=== PATIENT | female | born 1975 | race Caucasian/White ===

== ENCOUNTER 2017-04-25 22:52 | Emergency (ER) | payer OTHER ==
--- NOTE | 2017-04-25 23:24 | ERPHSYRPT ---
- History of Present Illness Time Seen by Provider: 04/25/17 23:01 Source: patient, other (N.N.) Exam Limitations: no limitations Patient Subjective Stated Complaint: PER EMS, family called EMS stating that pt took a hand full of pill. and had been drinking. 3 pills were removed from pt shirt. pt states that she took the recommended dose of her medication and had 1 drink. pt states she has a therapy appt tomorrow Triage Nursing Assessment: aox3, breathing easy unlabored, skin pink warm dry, speech slurred, steady gait from cot to bed, white powered noted to clothing, upper and lower lips and right side of face. Physician History: REPORTEDLY PT'S FATHER CALLED POLICE STATING PT TOOK A HANDFUL OF PILLS AND HAS BEEN DRINKING ALCOHOLIC BEVERAGES. PT WAS BROUGHT TO [facility] ER BY AMBULANCE. PT STATES SHE TOOK ONLY THE USUAL DOSAGE OF HER MEDICATIONS AND HAD ONLY ONE DRINK. PT DENIES HOMICIDAL/SUICIDAL IDEATION AND STATES HER THERAPIST AT [facility] IS CY AND HAS AN APPOINTMENT TOMORROW AT 4:00 PM. PT STATES SHE CHEWS HER IBUPROFEN AND THIS IS THE WHITE POWDER AROUND HER LIPS AND RIGHT SIDE OF HER FACE. PT DENIES CHEST PAIN, SHORTNESS OF AIR, ABDOMINAL PAIN. Allergies/Adverse Reactions: No Known Drug Allergies Allergy (Verified 04/25/17 23:14) Home Medications: Clonazepam 0.5 mg [Klonopin 0.5 MG] 2 mg PO TID 04/25/17 [History] Methylphenidate 5 mg [Ritalin 5 MG] 10 mg PO TID 04/25/17 [History] Quetiapine Fumarate 25 mg [Seroquel 25 MG] 150 mg PO DAILY 04/25/17 [ History] Hx Tetanus, Diphtheria Vaccination/Date Given: Yes (WITHIN 5 YRS) Hx Influenza Vaccination/Date Given: No Hx Pneumococcal Vaccination/Date Given: No - Review of Systems Constitutional: No Weakness Respiratory: No Dyspnea Cardiac: No Chest Pain Abdominal/Gastrointestinal: No Abdominal Pain, No Vomiting Neurological: No Headache Psychological: No Suicidal Ideations, No Homicidal Ideations All Other Systems: Reviewed and Negative - Past Medical History Pertinent Past Medical History: Yes Neurological History: No Pertinent History ENT History: No Pertinent History Cardiac History: No Pertinent History Respiratory History: No Pertinent History Endocrine Medical History: No Pertinent History Musculoskeletal History: No Pertinent History GI Medical History: No Pertinent History History: No Pertinent History Psycho-Social History: Anxiety, Depression Female Reproductive Disorders: No Pertinent History Other Medical History: history recalled from computer - Past Surgical History Past Surgical History: No Neuro Surgical History: No Pertinent History Cardiac: No Pertinent History Gastrointestinal: No Pertinent History Genitourinary: No Pertinent History Musculoskeletal: No Pertinent History Female Surgical History: No Pertinent History Other Surgical History: history recalled from computer - Social History Smoking Status: Light tobacco smoker Exposure to second hand smoke: No Drug Use: marijuana Patient Lives Alone: No - Female History Hx Now: No - Nursing Vital Signs Nursing Vital Signs: Initial Vital Signs Temperature 98.0 F 04/25/17 22:59 Pulse Rate 125 H 04/25/17 22:59 Respiratory Rate 14 04/25/17 22:59 Blood Pressure 85/65 04/25/17 22:59 O2 Sat by Pulse Oximetry 96 04/25/17 22:59 Pain Scale Pain Intensity 9 - Physical Exam General Appearance: alert, anxiety Eye Exam: PERRL/EOMI Ears, Nose, Throat Exam: TMs normal, other (WHITE COATING TO TONGUE, LIPS AND RIGHT SIDE OF FACE.) Neck Exam: full range of motion Respiratory Exam: lungs clear Cardiovascular Exam: normal heart sounds Gastrointestinal/Abdomen Exam: soft, normal bowel sounds Back Exam: normal range of motion Extremity Exam: normal inspection, normal range of motion, No pedal edema Neurologic Exam: alert, cooperative, sensation nml, intoxicated appearance, other (ANXIOUS), No motor deficits Skin Exam: No cyanosis SpO2 Interpretation: normal SpO2: 96 Oxygen Delivery: Room Air - Course Nursing assessment & vital signs reviewed: Yes Ordered Tests: Active Orders 24 hr Category Date Time Status ACETAMINOPHEN Stat Lab 04/25/17 23:15 Completed AMYLASE Stat Lab 04/25/17 23:15 Completed CBC W DIFF Stat Lab 04/25/17 23:15 Completed CMP Stat Lab 04/25/17 23:15 Completed ETHYL ALCOHOL Stat Lab 04/25/17 23:15 Completed HCG QUALITATIVE,SERUM Stat Lab 04/25/17 23:15 Completed LIPASE Stat Lab 04/25/17 23:15 Completed SALICYLATE Stat Lab 04/25/17 23:15 Completed UA W/RFX UR CULTURE Stat Lab 04/25/17 23:25 Completed Urine Triage Profile Stat Lab 04/25/17 23:25 Completed Lab/Rad Data: Laboratory Result Diagrams 04/25/17 23:15 04/25/17 23:15 Laboratory Results 04/25/17 04/25/17 04/25/17 Range/Units 23:25 23:25 23:15 WBC (4.0-10.5) K/mm3 RBC (4.1-5.4) M/mm3 Hgb (12.0-16.0) gm/dl Hct (35-47) % MCV (78-100) fl MCH (26-32) pg MCHC (32-36) g/dl RDW (11.5-14.0) % Plt Count (150-450) K/mm3 MPV (6-9.5) fl Gran % (36.0-66.0) % Lymphocytes % (24.0-44.0) % Monocytes % (0.0-12.0) % Eosinophils % (0.00-5.0) % Basophils % (0.0-0.4) % Basophils # (0-0.4) Sodium (136-145) mEq/L Potassium (3.5-5.1) mEq/L Chloride (98-107) mEq/L Carbon Dioxide (21-32) mEq/L Anion Gap (5-15) MEQ/L BUN (9-20) mg/dL Creatinine (0.55-1.30) mg/dl Estimated GFR ML/MIN Glucose (70-110) MG/DL Calcium (8.5-10.1) mg/dL Total Bilirubin (0.2-1.0) mg/dL AST (15-37) U/L ALT (12-78) U/L Alkaline Phosphatase (46-116) U/L Serum Total Protein (6.4-8.2) gm/dL Albumin (3.4-5.0) g/dL Amylase (25-115) U/L Lipase (73-393) U/L Serum , Qual NEGATIVE (Negative) Ur Collection Type CLEAN CATCH Urine Color YELLOW (YELLOW) Urine Appearance CLEAR (CLEAR) Urine pH 5.0 (5-6) Ur Specific Weems 1.015 (1.005-1.025) Urine Protein NEGATIVE (Negative) Urine Ketones NEGATIVE (NEGATIVE) Urine Blood NEGATIVE (0-5) Zane/ul Urine Nitrite NEGATIVE (NEGATIVE) Urine Bilirubin NEGATIVE (NEGATIVE) Urine Urobilinogen NORMAL (0-1) mg/dL Ur Leukocyte Esterase NEGATIVE (NEGATIVE) Urine Culture Reflexed NO (NO) Urine Glucose NEGATIVE (NEGATIVE) mg/dL Salicylates (2.8-20.0) mg/dl Urine Opiates Level NEG. (NEGATIVE) Ur Methadone NEG. (NEGATIVE) Acetaminophen (10-30) ug/ml Urine Barbiturates NEG. (NEGATIVE) Ur Phencyclidine (PCP) NEG. (NEGATIVE) Urine Amphetamine NEG. (NEGATIVE) U Benzodiazepine Level NEG. (NEGATIVE) Urine Cocaine NEG. (NEGATIVE) Urine Marijuana (THC) NEG. (NEGATIVE) Ethyl Alcohol (0.00-0.01) % Specimen Received 04/25/17:202404/25/17 04/25/17 04/25/17 Range/Units 23:15 23:15 23:15 WBC 14.6 H (4.0-10.5) K/mm3 RBC 5.33 (4.1-5.4) M/mm3 Hgb 16.3 H (12.0-16.0) gm/dl Hct 48.0 H (35-47) % MCV 90.1 (78-100) fl MCH 30.5 (26-32) pg MCHC 34.0 (32-36) g/dl RDW 12.8 (11.5-14.0) % Plt Count 276 (150-450) K/mm3 MPV 10.9 H (6-9.5) fl Gran % 58.9 (36.0-66.0) % Lymphocytes % 31.1 (24.0-44.0) % Monocytes % 8.6 (0.0-12.0) % Eosinophils % 1.3 (0.00-5.0) % Basophils % 0.1 (0.0-0.4) % Basophils # 0.02 (0-0.4) Sodium 141 (136-145) mEq/L Potassium 3.3 L (3.5-5.1) mEq/L Chloride 105 (98-107) mEq/L Carbon Dioxide 23.8 (21-32) mEq/L Anion Gap 15.3 H (5-15) MEQ/L BUN 14 (9-20) mg/dL Creatinine 0.96 (0.55-1.30) mg/dl Estimated GFR > 60 ML/MIN Glucose 150 H (70-110) MG/DL Calcium 8.7 (8.5-10.1) mg/dL Total Bilirubin 0.20 (0.2-1.0) mg/dL AST 8 L (15-37) U/L ALT 19 (12-78) U/L Alkaline Phosphatase 60 (46-116) U/L Serum Total Protein 7.1 (6.4-8.2) gm/dL Albumin 3.6 (3.4-5.0) g/dL Amylase 283 H (25-115) U/L Lipase 176 (73-393) U/L Serum , Qual (Negative) Ur Collection Type Urine Color (YELLOW) Urine Appearance (CLEAR) Urine pH (5-6) Ur Specific Weems (1.005-1.025) Urine Protein (Negative) Urine Ketones (NEGATIVE) Urine Blood (0-5) Zane/ul Urine Nitrite (NEGATIVE) Urine Bilirubin (NEGATIVE) Urine Urobilinogen (0-1) mg/dL Ur Leukocyte Esterase (NEGATIVE) Urine Culture Reflexed (NO) Urine Glucose (NEGATIVE) mg/dL Salicylates < 2.8 L (2.8-20.0) mg/dl Urine Opiates Level (NEGATIVE) Ur Methadone (NEGATIVE) Acetaminophen < 2.0 L (10-30) ug/ml Urine Barbiturates (NEGATIVE) Ur Phencyclidine (PCP) (NEGATIVE) Urine Amphetamine (NEGATIVE) U Benzodiazepine Level (NEGATIVE) Urine Cocaine (NEGATIVE) Urine Marijuana (THC) (NEGATIVE) Ethyl Alcohol 0.145 H* (0.00-0.01) % Specimen Received - Departure Time of Disposition: 00:12 Departure Disposition: Home Clinical Impression: ALCOHOL INTOXICATION, MILD HYPOKALEMIA, ANXIETY, DEPRESSION Condition: Stable Critical Care Time: No Referrals: VIRGINIA MAYES [Primary Care Provider] - Instructions: Alcohol Abuse and Alcoholism Additional Instructions: FOLLOW UP WITH [facility] LATER TODAY AT 4:00 PM PRE-SCHEDULED. FOLLOW UP WITH PRIVATE DOCTOR LATER TODAY. AVOID ALCOHOLIC BEVERAGES.
[2017-04-25 23:32] LABS: BASOPHIL % 0.1 % (0.0-0.4); Eosinophil % 1.3 % (0.00-5.0); Granulocytes % 58.9 % (36.0-66.0); Lymphocytes % 31.1 % (24.0-44.0); Mean Cell Volume 90.1 fl (78-100); Mean Platelet Volume 10.9 fl (6-9.5); Monocytes % 8.6 % (0.0-12.0); Platelet Count 276 K/mm3 (150-450); Red Blood Count 5.33 M/mm3 (4.1-5.4); Red Cell Distribution Width 12.8 % (11.5-14.0); White Blood Count 14.6 K/mm3 (4.0-10.5)
[2017-04-25 23:33] LABS: ADD URINE CULTURE? NO (NO); Bilirubin NEGATIVE (NEGATIVE); Blood NEGATIVE Ery/ul (0-5); COMPLETE URINE MICROSCOPIC? NO; Collection Type CLEAN CATCH; Glucose NEGATIVE (NEGATIVE); Leukocyte Esterase NEGATIVE (NEGATIVE)
[2017-04-25 23:34] LABS: Mean Corpuscular Hemoglobin 30.5 pg (26-32)
[2017-04-25 23:49] LABS: LIPASE 176 U/L (73-393)
[2017-04-25 23:54] LABS: ALBUMIN 3.6 g/dL (3.4-5.0); ALKALINE PHOSPHATASE 60 U/L (46-116); ANION GAP 15.3 MEQ/L (5-15); BLOOD UREA NITROGEN 14 mg/dL (9-20); CHLORIDE 105 mEq/L (98-107); Carbon Dioxide 23.8 mEq/L (21-32); Glucose 150 MG/DL (70-110); Potassium 3.3 mEq/L (3.5-5.1); SGOT/AST 8 U/L (15-37); SGPT/ALT 19 U/L (12-78); SODIUM 141 mEq/L (136-145); Total Protein 7.1 gm/dL (6.4-8.2)
[2017-04-25 23:57] LABS: ACETAMINOPHEN < 2.0 ug/ml (10-30)
[2017-04-25 23:59] LABS: ETHYL ALCOHOL 0.145 % (0.00-0.01)
[2017-04-26 00:22] VITALS: BP 111/72; PULSE 120; O2SAT 94
== END 2017-04-26 00:55 | disposition home or self-care (01) ==
LOC: ED 22:52
DX: F10.129 Alcohol abuse with intoxication, unspecified (principal); E87.6 Hypokalemia; F41.9 Anxiety disorder, unspecified; F32.9 Major depressive disorder, single episode, unspecified
CPT/HCPCS: 36415; 80053; 80307; 81002; 82150; 83690; 84703; 85025; 99283; 99284; G0481

== ENCOUNTER 2021-08-29 19:48 | Emergency (ER) | payer MEDICARE ==
[2021-08-29 20:38] VITALS: BP 110/79; PULSE 94; O2SAT 98
--- NOTE | 2021-08-29 20:52 | ERPHSYRPT ---
- History of Present Illness Source: patient, police Exam Limitations: other (Pt is a poor historian who refuses all labs) Patient Subjective Stated Complaint: "I don't know. This is all wrong." Triage Nursing Assessment: The patient presented to the ED via law enforcement with signed emergency [facility] paperwork. Officer Len Johnson reported that the [facility] department was contacted regarding the paperwork and that he was transporting the patient here for transfer to [facility]. The patient presented alert et oriented answering questions appropriately. She denied any complaints at this time. The patient denied that DAVEY paperwork was true or accurate. She denied any history of SI/HI, hallucinations, or dellusions. The patient reported that this is happening because the county is "after my family trying to break us up. They took a mother, took a sister, and its harassment." The patient also stated, "They keep doing this, they won't leave me alone.". The patient is alert et oriented at this time. Speech is soft. She appears slightly guarded about the situation, stating "I'd rather not discuss it with you." The patient is calm during the interaction, she is not wanting to discuss much of the triage questions. Physician History: 46 yo wf dropped off by local police w DAVEY and acceptance to [place] ER for psych admit. Pt denies suicidal/homicidal ideation and is alert/oriented x3. Timing/Duration: gradual onset Severity of Symptoms-Max: moderate Severity of Symptoms-Current: moderate Context related to: other (Unknown) Associated Symptoms: anxiety, frustrated, paranoid, No angry, No agitated, No confused, No hostile, No hallucinating, No impaired concentration, No ingestion, No injury, No insomnia, No suicidal ideation Allergies/Adverse Reactions: No Known Drug Allergies Allergy (Verified 08/29/21 19:51) Home Medications: Clonazepam 0.5 mg [Klonopin 0.5 MG] 2 mg PO TID 04/25/17 [History] Quetiapine Fumarate 25 mg [Seroquel 25 MG] 150 mg PO DAILY 04/25/17 [History] Hx Tetanus, Diphtheria Vaccination/Date Given: No (WITHIN 5 YRS) Hx Influenza Vaccination/Date Given: No Hx Pneumococcal Vaccination/Date Given: No Travel Risk - International Travel Have you traveled outside of the country in past 3 weeks: No - Coronavirus Screening Are you exhibiting any of the following symptoms?: No Close contact with a COVID-19 positive Pt in past 14-21 Days: No - Vaccine Status Have you recieved a Covid-19 vaccination: No - Past Medical History Pertinent Past Medical History: Yes Neurological History: No Pertinent History ENT History: No Pertinent History Cardiac History: No Pertinent History Respiratory History: No Pertinent History Endocrine Medical History: No Pertinent History Musculoskeletal History: No Pertinent History GI Medical History: No Pertinent History History: No Pertinent History Psycho-Social History: Anxiety, Depression Female Reproductive Disorders: No Pertinent History Other Medical History: history recalled from computer - Past Surgical History Past Surgical History: No Neuro Surgical History: No Pertinent History Cardiac: No Pertinent History Gastrointestinal: No Pertinent History Genitourinary: No Pertinent History Musculoskeletal: No Pertinent History Female Surgical History: No Pertinent History Other Surgical History: history recalled from computer - Social History Smoking Status: Light tobacco smoker Exposure to second hand smoke: No Drug Use: marijuana Patient Lives Alone: No Significant Family History: no pertinent family hx - Female History Hx Now: No - Review of Systems Constitutional: No Symptoms Eyes: No Symptoms Ears, Nose, & Throat: No Symptoms Respiratory: No Symptoms Cardiac: No Symptoms Abdominal/Gastrointestinal: No Symptoms Genitourinary Symptoms: No Symptoms Musculoskeletal: No Symptoms Skin: No Symptoms Neurological: No Symptoms Psychological: No Symptoms Endocrine: No Symptoms Hematologic/Lymphatic: No Symptoms Immunological/Allergic: No Symptoms - Nursing Vital Signs Nursing Vital Signs: Initial Vital Signs Pulse Rate 94 H 08/29/21 19:48 Respiratory Rate 14 08/29/21 19:48 Blood Pressure 110/79 08/29/21 19:48 O2 Sat by Pulse Oximetry 98 08/29/21 19:48 Pain Scale Pain Intensity 0 WNL - Physical Exam General Appearance: no apparent distress, anxiety Eyes, Ears, Nose, Throat Exam: normal ENT inspection, TMs normal, pharynx nor mal, moist mucous membranes Neck Exam: normal inspection, non-tender, supple, full range of motion, No Brudzinski, No Kernig's, No meningismus Respiratory Exam: normal breath sounds, lungs clear, airway intact Cardiovascular Exam: regular rate/rhythm, normal heart sounds, capillary refill <2 sec, No murmur Gastrointestinal/Abdominal Exam: soft, No tenderness Extremities Exam: normal inspection, normal range of motion, No evidence of injury Peripheral Pulses: carotid (R): 2+, carotid (L): 2+ Current Suicidality: denies suicide plan Neurological Exam: alert, calm, courtroom deputy or calendar clerk II-XII nml as tested, oriented x 3, responds to pain, anxious Appearance: appropriate appearance Behavior/Eye Contact/Speech: alert & cooperative, good eye contact, normal speec h Skin Exam: normal color, warm, dry SpO2 Interpretation: normal SpO2: 98 O2 Delivery: Room Air - Course Nursing assessment & vital signs reviewed: Yes - Progress Progress Note: 08/29/21 20:54 Pt refuses all blood work Spoke w district associate judge(Fortunato) who stated that verbal DAVEY ok 08/29/21 21:22 Pt escorted by [facility] to [facility]. Touched base w [facility] 2-3 times, and they were aware of pt and transfer. Pt in stable condition when transferred to [facility]. Counseled pt/family regarding: diagnosis - Departure Departure Disposition: Transfer Clinical Impression: At risk for danger to others Condition: Stable Critical Care Time: No Referrals: DOCTOR,NO FAMILY [Primary Care Provider] - Follow up/PCP as directed
== END 2021-08-29 21:21 ==
LOC: ED 19:48
DX: R45.1 Restlessness and agitation (principal); F22 Delusional disorders; F41.9 Anxiety disorder, unspecified; Z79.899 Other long term (current) drug therapy
CPT/HCPCS: 99284